=== PATIENT | female | born 1985 | race African-American/Black ===

== ENCOUNTER 2021-04-27 21:45 | Observation (INO) ==
[2021-04-27 22:37] LABS: Bilirubin,Urine Negative (Negative); Blood, Urine Negative (Negative); Glucose,Urine (UA) Negative (Negative); Ketones,Urine Negative (Negative); Mucus,Urine Occasional /LPF (Occasional); Nitrite,Urine Negative (Negative); Protein,Urine Negative; RBC,Urine 5 /HPF (0-4); Squamous Epithelial Cell,Urine Occasional /HPF (0-10); Urine Appearance CLEAR (Clear); Urine Color Yellow (Yellow); Urine Specific Gravity 1.021 (1.001-1.035); Urine Urobilinogen < 2.0 EU/DL (0.2-1.0)
[2021-04-28] MEDS ORDERED: SODIUM CHLORIDE 0.9% 1,000 ML IV STA
[2021-04-28] MEDS ORDERED: KETOROLAC 30 MG/1 ML VIAL IV STA
[2021-04-28] MEDS ORDERED: ONDANSETRON 4 MG/2 ML VIAL IV STA
[2021-04-28 00:40] LABS: Alanine Aminotransferase 27 U/L (13-56); Albumin 3.5 G/DL (3.4-5.0); Alkaline Phosphatase 93 U/L (45-117); Aspartate Amino Transferase 14 U/L (0-37); Bilirubin,Total < 0.39 MG/DL (0.2-1.0); Blood Urea Nitrogen 8 MG/DL (7-18); Calcium 8.6 MG/DL (8.5-10.1); Carbon Dioxide 29 MMOL/L (21-32); Estimated Glom Filtration Rate 147 ML/MIN; Glucose 109 MG/DL (74-106); Osmolality,Calculated 271.8 MOS/KG (273-304); Potassium 3.4 MMOL/L (3.5-5.1); Sodium 137 MMOL/L (136-145); Total Protein 7.2 G/DL (6.4-8.2)
[2021-04-28 00:49] LABS: Basophils % 0.2 % (0.0-0.8); Eosinophils # 0.2 10*3/uL (0.0-0.87); Eosinophils % 2.1 % (0.00-10.9); Hematocrit 39.9 VOL% (35.7-47.0); Hemoglobin 12.5 GM/DL (12.0-16.0); Immature Granulocytes % 0.9 %; Immature Granulocytes Absolute 0.09 #; Lymphocytes # 3.4 10*3/uL (1.4-4.0); Mean Corpuscular HGB Conc 31.3 GM/DL (32-36); Mean Corpuscular Volume 75.4 FL (87-102); Mean Platelet Volume 9.6 FL (9.6-12.0); Monocytes % 5.9 % (1.7-12.7); Neutrophils % 56.9 % (38.7-73.9); Platelet Count 321 T/CUMM (130-400); Red Blood Count 5.29 MC/CUMM (3.8-5.5); Red Cell Distribution Width 15.7 % (9.3-17.3); White Blood Count 9.9 T/CUMM (4-12)
[2021-04-28] MEDS ORDERED: PIPERACILLIN/TAZOBACTAM 3,375 MG in SODIUM CHLORIDE 0.9% 100 ML IV STA (01:36)
[2021-04-28] MEDS ORDERED: MORPHINE 4 MG/1 ML VIAL IV PRN (01:39)
[2021-04-28] MEDS ORDERED: ONDANSETRON 4 MG/2 ML VIAL IV PRN ×3 (01:39→10:41)
[2021-04-28 01:44] LABS: Platelet Estimate Normal
[2021-04-28 01:45] LABS: Hypochromasia 2+; Microcytosis 1+
[2021-04-28] MEDS ORDERED: ONDANSETRON 4 MG/2 ML VIAL IV ONE (03:10)
[2021-04-28] MEDS ORDERED: MORPHINE 4 MG/1 ML VIAL IV STA (03:10)
[2021-04-28] MEDS: DEXTROSE 5% NACL 0.45% 1,000 ML IV SCH ×2 (04:56→11:25)
[2021-04-28 05:46] LABS: Basophils % 0.2 % (0.0-0.8); Eosinophils # 0.2 10*3/uL (0.0-0.87); Eosinophils % 2.3 % (0.00-10.9); Hematocrit 38.3 VOL% (35.7-47.0); Hemoglobin 11.9 GM/DL (12.0-16.0); Immature Granulocytes % 0.2 %; Immature Granulocytes Absolute 0.02 #; Lymphocytes # 3.3 10*3/uL (1.4-4.0); Lymphocytes % 40.2 % (21.3-54.2); Mean Corpuscular HGB Conc 31.1 GM/DL (32-36); Mean Corpuscular Volume 75.7 FL (87-102); Mean Platelet Volume 9.4 FL (9.6-12.0); Neutrophils % 50.1 % (38.7-73.9); Platelet Count 275 T/CUMM (130-400); Red Blood Count 5.06 MC/CUMM (3.8-5.5); Red Cell Distribution Width 15.8 % (9.3-17.3); White Blood Count 8.2 T/CUMM (4-12)
[2021-04-28 06:01] LABS: Calcium 8.3 MG/DL (8.5-10.1); Osmolality,Calculated 273.7 MOS/KG (273-304); Potassium 3.4 MMOL/L (3.5-5.1)
[2021-04-28 06:28] LABS: Hypochromasia 2+; Microcytosis 1+
[2021-04-28 06:29] LABS: Platelet Estimate Normal; Target Cells Slight
[2021-04-28] MEDS ORDERED: BUPIVACAINE MPF 0.25% 30 ML VIAL ONE (08:45)
[2021-04-28] MEDS ORDERED: TISSUE ADHESIVE 1 EACH APPLICATOR TOP ONE (08:45)
[2021-04-28] MEDS ORDERED: LIDOCAINE 1%/EPI INJ 20 ML VIAL ONE (08:46)
[2021-04-28] MEDS ORDERED: MIDAZOLAM 2 MG/2 ML VIAL ONE (08:58)
[2021-04-28] MEDS ORDERED: LIDOCAINE 2% 5 ML VIAL ONE (08:58)
[2021-04-28] MEDS ORDERED: SUCCINYLCHOLINE 200 MG/10 ML VIAL ONE (08:58)
[2021-04-28] MEDS ORDERED: ROCURONIUM 50 MG/5 ML VIAL IV ONE (08:58)
[2021-04-28] MEDS ORDERED: propofoL 200 MG/20 ML VIAL IV ONE (08:58)
[2021-04-28] MEDS ORDERED: fentaNYL 100 MCG/2 ML VIAL ONE (08:58)
[2021-04-28] MEDS ORDERED: ONDANSETRON 4 MG/2 ML VIAL ONE (08:58)
[2021-04-28] MEDS ORDERED: GLYCOPYRROLATE 0.4 MG/2 ML VIAL ONE (08:58)
[2021-04-28] MEDS ORDERED: SEVOFLURANE 1 UNIT/15 MINUTE INH ONE ×2 (08:59→10:18)
[2021-04-28] MEDS ORDERED: NEOSTIGMINE 10 MG/10 ML VIAL ONE (08:59)
[2021-04-28] MEDS ORDERED: KETOROLAC 30 MG/1 ML VIAL ONE (09:29)
[2021-04-28] MEDS ORDERED: LACTATED RINGERS 1,000 ML IV ONE (09:30)
[2021-04-28] MEDS ORDERED: PHENYLEPHRINE 1 MG/10 ML SYRINGE IV ONE (09:48)
[2021-04-28] MEDS ORDERED: HYDROmorphone 2 MG/1 ML VIAL IV PRN ×2 (10:39→10:41)
[2021-04-28] MEDS ORDERED: BISACODYL 5 MG TABLET PO PRN (10:41)
[2021-04-28] MEDS ORDERED: KETOROLAC 15 MG/1 ML VIAL IV PRN (10:41)
[2021-04-28] MEDS ORDERED: ALBUTEROL/IPRATROPIUM 3 ML NEB RESP TX PRN (10:41)
[2021-04-28] MEDS ORDERED: HYDROmorphone 2 MG/1 ML VIAL ONE (10:41)
[2021-04-28] MEDS ORDERED: ALBUTEROL 2.5 MG/3 ML NEB RESP TX PRN (10:45)
[2021-04-28] MEDS ORDERED: clonazePAM 0.5 MG TABLET PO PRN (10:45)
[2021-04-28] MEDS: PIPERACILLIN/TAZOBACTAM 3,375 MG in SODIUM CHLORIDE 0.9% 100 ML IV SCH ×2 (11:19→17:31)
[2021-04-28] MEDS: PANTOPRAZOLE 40 MG VIAL IV SCH (11:19)
[2021-04-28] MEDS: LACTATED RINGERS 1,000 ML IV SCH ×2 (11:19→18:17)
[2021-04-28] MEDS: HYDROmorphone 2 MG/1 ML VIAL IV PRN ×3 (14:30→23:21)
[2021-04-29] MEDS: LACTATED RINGERS 1,000 ML IV SCH ×2 (04:40→15:14)
[2021-04-29 05:33] LABS: Basophils % 0.1 % (0.0-0.8); Hematocrit 37.5 VOL% (35.7-47.0); Immature Granulocytes % 0.5 %; Immature Granulocytes Absolute 0.08 #; Lymphocytes # 2.1 10*3/uL (1.4-4.0); Lymphocytes % 13.5 % (21.3-54.2); Mean Corpuscular Volume 75.3 FL (87-102); Monocytes % 6.2 % (1.7-12.7); Neutrophils % 79.7 % (38.7-73.9); Platelet Count 305 T/CUMM (130-400); Red Blood Count 4.98 MC/CUMM (3.8-5.5); Red Cell Distribution Width 15.9 % (9.3-17.3); White Blood Count 15.3 T/CUMM (4-12)
[2021-04-29 05:47] LABS: Calcium 8.2 MG/DL (8.5-10.1); Osmolality,Calculated 279.5 MOS/KG (273-304)
[2021-04-29] MEDS: PIPERACILLIN/TAZOBACTAM 3,375 MG in SODIUM CHLORIDE 0.9% 100 ML IV SCH ×3 (06:00→23:28)
[2021-04-29] MEDS: HYDROmorphone 2 MG/1 ML VIAL IV PRN ×4 (06:07→23:40)
[2021-04-29] MEDS: PANTOPRAZOLE 40 MG VIAL IV SCH (08:07)
[2021-04-29] MEDS: hydroCHLOROthiazide 12.5 MG CAPSULE PO SCH (08:07)
[2021-04-29] MEDS: LOSARTAN 50 MG TABLET PO SCH (08:08)
[2021-04-29] MEDS: amLODIPine 10 MG TABLET PO SCH (08:08)
[2021-04-29] MEDS ORDERED: POLYETHYLENE GLYCOL POWDER 17 GM PACK PO PRN (17:02)
[2021-04-30] MEDS: HYDROmorphone 2 MG/1 ML VIAL IV PRN ×3 (03:59→12:13)
[2021-04-30] MEDS: LACTATED RINGERS 1,000 ML IV SCH ×3 (05:41→13:09)
[2021-04-30] MEDS: PIPERACILLIN/TAZOBACTAM 3,375 MG in SODIUM CHLORIDE 0.9% 100 ML IV SCH ×2 (05:43→17:24)
[2021-04-30 06:39] LABS: Basophils % 0.2 % (0.0-0.8); Eosinophils # 0.1 10*3/uL (0.0-0.87); Eosinophils % 0.9 % (0.00-10.9); Hematocrit 36.4 VOL% (35.7-47.0); Hemoglobin 11.2 GM/DL (12.0-16.0); Immature Granulocytes % 0.7 %; Immature Granulocytes Absolute 0.09 #; Lymphocytes # 4.5 10*3/uL (1.4-4.0); Lymphocytes % 35.7 % (21.3-54.2); Mean Corpuscular HGB Conc 30.8 GM/DL (32-36); Mean Corpuscular Volume 76.2 FL (87-102); Mean Platelet Volume 9.8 FL (9.6-12.0); Neutrophils % 56.5 % (38.7-73.9); Platelet Count 296 T/CUMM (130-400); Red Blood Count 4.78 MC/CUMM (3.8-5.5); Red Cell Distribution Width 16.2 % (9.3-17.3); White Blood Count 12.7 T/CUMM (4-12)
[2021-04-30 07:06] LABS: Eosinophils 1 % (0-10); Lymphocytes 34 % (20-55); Platelet Estimate Adequate; Segmented Neutrophils 60 % (50-85); Total Cells Counted 100
[2021-04-30 07:07] LABS: Hypochromasia Slight; Microcytosis Slight
[2021-04-30] MEDS: PANTOPRAZOLE 40 MG VIAL IV SCH (08:07)
[2021-04-30] MEDS: amLODIPine 10 MG TABLET PO SCH (09:03)
[2021-04-30] MEDS: LOSARTAN 50 MG TABLET PO SCH (09:03)
[2021-04-30] MEDS: hydroCHLOROthiazide 12.5 MG CAPSULE PO SCH (09:03)
[2021-04-30] MEDS ORDERED: GLUCAGON 1 MG VIAL IM PRN (09:58)
[2021-04-30] MEDS ORDERED: DEXTROSE 50% 25 GM/50 ML VIAL IV PRN (09:58)
[2021-04-30 12:16] VITALS: BP 155/101
== END 2021-04-30 18:15 | disposition home or self-care (01) ==
LOC: N.EDINP 21:45 → N.ED 21:45 → N.3E 04-28 03:44
PROVIDERS: ADMIT Surgery; ATTEND Surgery